=== PATIENT | male | born 1980 | race Hispanic/Latino ===

== ENCOUNTER 2021-08-21 20:38 | Emergency (ER) | payer BC ==
[2021-08-21] MEDS ORDERED: Acetaminophen 500 MG TAB ONE (22:52)
== END 2021-08-22 00:30 | disposition home or self-care (01) ==
LOC: ERS 20:38
DX: S22.32XA Fracture of one rib, left side, initial encounter for closed fracture (principal); S50.02XA Contusion of left elbow, initial encounter; V00.121A Fall from non-in-line roller-skates, initial encounter; Y93.51 Activity, roller skating (inline) and skateboarding; Z79.899 Other long term (current) drug therapy
CPT/HCPCS: 93005